=== PATIENT | female | born 1980 | race Caucasian/White ===

== ENCOUNTER 2025-07-03 16:20 | Emergency (ER) | payer SELFPAY ==
[2025-07-03 16:21] VITALS: BP 202/111
== END 2025-07-03 18:41 | disposition left against medical advice (07) ==
LOC: EMR 16:20
PROVIDERS: EMERGENCY PHYSICIAN Student in an Organized Health Care Education/Training Program
DX: Z53.21 Procedure and treatment not carried out due to patient leaving prior to being seen by health care provider (principal)
CPT/HCPCS: 93005